=== PATIENT | female | born 1955 | race Caucasian/White ===

== ENCOUNTER 2017-06-05 23:30 | Emergency (ER) | payer MEDICARE ==
[~2017-06-05 23:30] MED LIST: EPINEPHRINE HCL 0.1 MG/ML SOL IV PRN
[2017-06-05 23:33] VITALS: O2SAT 91
[2017-06-05] MEDS: EPINEPHRINE HCL 0.1 MG/ML SOL IV PRN ×2 (23:36→23:40)
[2017-06-05] MEDS ORDERED: CALCIUM GLUCONATE 10% 100 MG/ML SOL IV ONE ×2 (23:37→23:41)
[2017-06-05] MEDS ORDERED: SODIUM BICARBONATE 8.4%(ADULT) 1 MEQ/ML SOL IV ONE (23:39)
[2017-06-05] MEDS ORDERED: EPINEPHRINE HCL 0.1 MG/ML SOL IV PRN (23:44)
[2017-06-05] MEDS ORDERED: NOREPINEPHRINE 4 MG/4 ML 4 MG in DEXTROSE 500 ML 500 ML IV SCH (23:45)
[2017-06-05] MEDS ORDERED: NOREPINEPHRINE BITARTRATE 4 MG/4 ML SOL IV ONE (23:50)
[2017-06-05] MEDS ORDERED: FENTANYL 100MCG/2ML SOL ONE (23:51)
[2017-06-05] MEDS ORDERED: FENTANYL 100MCG/2ML SOL IV ONE (23:52)
[2017-06-05] MEDS ORDERED: SODIUM CHLORIDE 0.9% 1000ML 1,000 ML IV ONE (23:54)
[2017-06-05 23:58] LABS: HEMATOCRIT 32 % (35-47); MEAN CORPUSCULAR HGB CONC 32.6 gm/dl (32.0-36.0)
[2017-06-06] LABS: MEAN CORPUSCULAR VOLUME 103 fL (81-99)
[2017-06-06 00:11] LABS: ALBUMIN 2.5 gm/dl (3.4-5.0); CALCIUM 10.5 mg/dl (8.5-10.1)
[2017-06-06] MEDS ORDERED: DEXTROSE 50% 1 VIAL SOL IV ONE ×2 (00:12→00:15)
[2017-06-06] MEDS ORDERED: INSULIN HUMAN REGULAR 100 U/ML SOL ONE (00:12)
[2017-06-06 00:14] LABS: POTASSIUM 6.2 mMol/L (3.5-5.1)
[2017-06-06] MEDS ORDERED: INSULIN HUMAN REGULAR 100 U/ML SOL IV ONE (00:15)
[2017-06-06 00:26] LABS: ANISOCYTOSIS SLIGHT AMT; BASOPHILS % (MANUAL) 0 % (0-3); EOSINOPHILS % (MANUAL) 0 % (0-9); LYMPHOCYTES % (MANUAL) 16 % (10-50)
[2017-06-06] MEDS ORDERED: SODIUM CHLORIDE 0.9% FLUSH 10 ML SOL IV PRN (00:44)
[2017-06-06] MEDS ORDERED: CALCIUM CHLORIDE 100 MG/ML SOL IV ONE (01:24)
[2017-06-06] MEDS ORDERED: SODIUM BICARBONATE 8.4%(ADULT) 1 MEQ/ML SOL IV ONE ×2 (01:24→01:53)
[2017-06-06] MEDS ORDERED: EPINEPHRINE 1:10,000 PREFILL 0.1 MG/ML SOL ONE (01:25)
[2017-06-06 01:44] VITALS: BP 74/67; PULSE 86; RESP 16
== END 2017-06-06 01:02 | disposition short-term general hospital (02) | DRG 296 ==
LOC: ED 23:30
DX: I46.9 Cardiac arrest, cause unspecified (principal); N18.6 End stage renal disease; E87.5 Hyperkalemia; I95.9 Hypotension, unspecified; Z91.15 Patient's noncompliance with renal dialysis; Z99.2 Dependence on renal dialysis
CPT/HCPCS: 36415; 80053; 82962; 83880; 85007; 85025; 85027; 93005; 99291; J1815; J3010